=== PATIENT | female | born 1945 | race Caucasian/White ===

== ENCOUNTER → 2024-04-07 10:45 | Outpatient (REF) | payer MEDICARE, OTHER, SELFPAY | LOC: HWWDC 10:45 | PROVIDERS: ATTENDING PHYSICIAN Internal Medicine Geriatric Medicine | DX: Z12.31 Encounter for screening mammogram for malignant neoplasm of breast (principal) | CPT/HCPCS: 77063; 77067 ==

== ENCOUNTER → 2024-04-08 10:37 | Outpatient (REF) | payer MEDICARE, OTHER, SELFPAY | LOC: RCS 10:37 | PROVIDERS: ATTENDING PHYSICIAN Internal Medicine Geriatric Medicine | DX: I10 Essential (primary) hypertension (principal); M05.79 Rheumatoid arthritis with rheumatoid factor of multiple sites without organ or systems involvement; R06.09 Other forms of dyspnea; I72.9 Aneurysm of unspecified site; E66.09 Other obesity due to excess calories; E78.2 Mixed hyperlipidemia | CPT/HCPCS: 93017; 93350 ==

== ENCOUNTER → 2024-04-15 10:07 | Outpatient (REF) | payer MEDICARE, OTHER, SELFPAY | LOC: WDC 10:07 | PROVIDERS: ATTENDING PHYSICIAN Internal Medicine Geriatric Medicine | DX: R92.8 Other abnormal and inconclusive findings on diagnostic imaging of breast (principal) | CPT/HCPCS: 76642 ==

== ENCOUNTER 2024-08-15 10:39 | Emergency (ER) | payer MEDICARE, OTHER, SELFPAY ==
[2024-08-15 11:04] VITALS: BP 190/159
[2024-08-15 11:27] VITALS: BP 167/112
[2024-08-15 11:34] VITALS: BMI 32.6
[2024-08-15 11:41] VITALS: BP 179/94
[2024-08-15 11:55] LABS: % Basophils 0.7 % (0-2); % Eosinophils 1.5 % (0-6); % Immature Granulocytes 0.3 % (0-0.5); % Lymphocytes 16.5 % (20.5-51.1); % Monocytes 12.4 % (1.7-9.3); % Neutrophils 68.6 % (42.2-75.2); Absolute Basophils 0.1 10^3/uL (0-0.2); Absolute Eosinophils 0.1 10^3/uL (0-0.7); Absolute Lymphocytes 1.3 10^3/uL (1.2-3.4); Absolute Monocytes 0.9 10^3/uL (0.1-0.6); Absolute Neutrophils 5.2 10^3/uL (1.4-6.5); Hematocrit 40.1 % (37.0-47.0); Mean Corp Hgb Conc. 34.9 g/dL (33.0-37.0); Mean Corpuscular Hgb 31.5 pg (27.0-31.0); Mean Corpuscular Volume 90.1 fL (81.0-99.0); Mean Platelet Volume 11.3 fL (7.4-10.4); Nucleated Red Blood Cells % 0 %; Platelet Count 152 10^3/uL (130-400); Red Blood Cell Count 4.45 10^6/uL (4.20-5.40); Red Cell Dist. Width 12.8 % (11.5-14.5); White Blood Cell Count 7.6 10^3/uL (4.8-10.8)
[2024-08-15 12:00] VITALS: BP 157/78
[2024-08-15 12:14] LABS: Blood Urea Nitrogen 11 mg/dl (7-17); Calcium 9.4 mg/dl (8.4-10.2); Carbon Dioxide 27 mmol/L (22-30); Chloride 102 mmol/L (98-107); Estimated Creatinine Clearance 79 ml/min; Glucose 124 mg/dl (70-99); Potassium 4.1 mmol/L (3.5-5.1); Sodium 140 mmol/L (135-145); eGFR > 60.00
[2024-08-15 12:21] LABS: Troponin I < 0.012 ng/ml
[2024-08-15 13:41] VITALS: BP 160/76
[2024-08-15 14:00] VITALS: BP 150/76
--- NOTE | 2024-08-15 14:18 | ED.GENMED ---
History of Present Illness
General
Chief Complaint: Breathing Problem
Source: patient
Time Seen by Provider: 08/15/24 11:11
History of Present Illness
History of Present Illness:
70-year-old female who presents with pain in the left lateral chest when she takes deep breath. Symptoms started last night. She does feel little bit short of breath like she cannot take a deep breath. Did take Advil at home and does seem a
little bit better. The patient does have a history of pleuritis in the past and that this feels somewhat similar. No fevers. No trauma.
Past History
Past History
ED Past Medical History: HTN and Hypercholesterolemia
Social History
Tobacco: Non-smoker
Living: with family
Phy Exam
Physical Exam
Physical Exam:
CONSTITUTIONAL Patient alert and oriented to person, place and time. Well-appearing. Vital signs reviewed.
HEAD atraumatic, normocephalic.
EYES eyelids normal to inspection, Pupils equally round and reactive to light, Extraocular muscles intact, Conjunctiva normal, Sclera normal.
NECK normal range of motion, Trachea midline, no jugular venous distention.
RESPIRATORY CHEST No respiratory distress noted, Chest expansion equal, Bilateral breath sounds clear.
CARDIOVASCULAR regular rate and rhythm, Heart sounds normal.
ABDOMEN abdomen nontender, Bowel sounds normal. No distention.
BACK normal inspection, no obvious deformities
UPPER EXTREMITY range of motion normal, Motor strength normal, no cyanosis, no edema.
LOWER EXTREMITY range of motion normal, Motor strength normal, no cyanosis, no edema.
NEURO Speech normal, No focal motor deficits, Patience coma scale 15, Memory normal, Cranial Nerves intact to screening exam.
SKIN skin warm, dry, and normal in color.
PSYCHIATRIC patient oriented to person place and time, Normal affect.
Scores
Heart Failure Risk
Heart Failure Risk Score: Not Applicable
Course
Orders/Labs/Results
Orders:
Orders
08/15/24 10:41
ECG [Electrocardiogram (*1)] Urgent
Reason for Study: Shortness of Breath
EKG- Treatment ONCE
08/15/24 11:18
Vital Signs- Treatment ONCE
Frequency: Once
08/15/24 11:27
CT Chest Pe Study Urgent
Comment:
Reason For Exam: L flank pleuritic pain, sob
Cardiac Monitoring- Treatment ONCE
08/15/24 11:44
Basic Metabolic Panel Urgent
Complete Blood Count/With Diff Urgent
Troponin I Urgent
Abnormal Lab Results
08/15/24
11:44
MCH 31.5 H pg
(27.0-31.0)
MPV 11.3 H fL
(7.4-10.4)
Absolute Monos (auto) 0.9 H 10^3/uL
(0.1-0.6)
Lymphocytes % 16.5 L %
(20.5-51.1)
Monocytes % 12.4 H %
(1.7-9.3)
Glucose 124 H mg/dl
(70-99)
08/15/24 11:44
08/15/24 11:44
Vital Signs
Initial and Last Documented VS:
Initial Vital Signs
Temp Pulse Resp BP Pulse Ox
98.4 F 99 18 190/159 96
08/15/24 11:04 08/15/24 11:04 08/15/24 11:04 08/15/24 11:04 08/15/24 11:04
Last Documented Vital Signs
Temp Pulse Resp BP Pulse Ox
98.4 F 88 18 150/76 96
08/15/24 11:04 08/15/24 14:00 08/15/24 14:00 08/15/24 14:00 08/15/24 13:45
MDM/Problems Addressed
MDM/Problems Addressed:
Pleuritic pain, pleuritis
*Radiology
Radiology exam reviewed: preliminary read by ED provider (No noted pneumothorax) and radiology read reviewed
*Pulse Oximetry
Patient hypoxic: no
*EKG
Interpreted by ED Provider?: Yes
Interpretation: abnormal
Rate: normal
[place]: left axis deviation
QRS Pattern: right bundle branch block
Ischemia: non-specific ST changes
*Sewer Line Photo Inspector Interpretation
Rate: normal
Interpretation: normal
Rhythm: sinus
*Critical Care Note
Total Time (30-74mins, 75-104mins- exclusive of procedures): Not Applicable
Data Reviewed
Source: patient
Patient Management
Discussion with other providers: Radiologist (No PE)
Escalation/DeEscalation of care consider admission/obs:
No PE by radiology. Question pleuritis. Okay for discharge
ED Attending Note
-
Portions of this chart may have been created with voice recognition software.� Occasional wrong word or��sound alike� substitutions may have occurred due to the inherent limitations of voice recognition software.
Discharge Plan
Departure
Patient Disposition: Home (Routine Discharge)
Date of Disposition: 08/15/24
Time of Disposition: 14:20
Patient with high blood pressure during this ER visit?: Yes
Discharge Problem:
Chest pain, pleuritic, Pleuritis
Instructions: Pleuritic chest pain, BLOOD PRESSURE
Prescriptions:
No Action
ibuprofen 600 MG tablet
600 mg PO Q6HPRN PRN (Reason: pain) Qty: 30 0RF
Referrals:
Neal Cooley MD [Family Provider] -
Activity Restrictions/Additional Instructions:
Please see your doctor in the next 3 to 5 days for follow-up and reevaluation. Return immediate for fevers, shortness of breath, worsening symptoms or any other concerns.
Interventions
Interventions:
*Risk Screen - Suicide Last Done: 08/15/24 11:04
*General Assessment Last Done: 08/15/24 11:04
*Neglect/Abuse Screening Last Done: 08/15/24 11:04
ED- Fall Risk Assessment Last Done: 08/15/24 11:45
*ED COVID-19 Vaccine History Last Done: 08/15/24 11:45
*Nursing Disposition Last Done: 08/15/24 14:30
ED- Cardiac Assessment Last Done: 08/15/24 11:45
ED- Pulmonary Assessment Last Done: 08/15/24 11:45
Discharge Date and Time
Discharge Date/Time: 08/15/24 14:31
Print Language: CUBAN
== END 2024-08-15 14:31 | disposition home or self-care (01) ==
LOC: EMR 10:39
PROVIDERS: EMERGENCY PHYSICIAN Emergency Medicine; FAMILY PHYSICIAN Internal Medicine Geriatric Medicine
DX: R07.1 Chest pain on breathing (principal); R09.1 Pleurisy; I10 Essential (primary) hypertension; E78.00 Pure hypercholesterolemia, unspecified
CPT/HCPCS: 99284; 71275; 80048; 84484; 85025; 93005; Q9967

== ENCOUNTER → 2025-04-11 10:38 | Outpatient (REF) | payer MEDICARE, OTHER, SELFPAY | LOC: WDC 10:38 | PROVIDERS: ATTENDING PHYSICIAN Internal Medicine Geriatric Medicine | DX: Z12.31 Encounter for screening mammogram for malignant neoplasm of breast (principal); M81.0 Age-related osteoporosis without current pathological fracture | CPT/HCPCS: 77063; 77067; 77080 ==

== ENCOUNTER → 2025-10-24 12:19 | Outpatient (REF) | payer MEDICARE, OTHER, SELFPAY | LOC: RAD 12:19 | PROVIDERS: ATTENDING PHYSICIAN Internal Medicine; FAMILY PHYSICIAN Internal Medicine Geriatric Medicine | DX: J44.9 Chronic obstructive pulmonary disease, unspecified (principal) | CPT/HCPCS: 71046 ==